=== PATIENT | male | born 1970 ===

== ENCOUNTER 2017-01-19 07:34 | Day surgery (SDC) | payer BC ==
[2017-01-19 07:58] VITALS: BMI 27.3
[2017-01-19] MEDS ORDERED: Propofol 10 mg/ml Inj (20 ML) ONE ×2 (09:16→09:34)
[2017-01-19] MEDS ORDERED: Simethicone 40 mg/0.6 ml Liquid (30 ml) ONE (09:36)
[2017-01-19 11:03] VITALS: TEMP 97
[2017-01-19 13:37] VITALS: BP 110/62; PULSE 75; RESP 16; O2SAT 97
== END 2017-01-19 11:05 | disposition home or self-care (01) ==
LOC: C.ENDO 07:34
PROVIDERS: ATTEND Internal Medicine Gastroenterology
DX: K29.50 Unspecified chronic gastritis without bleeding (principal); K62.3 Rectal prolapse; K64.8 Other hemorrhoids; K57.90 Diverticulosis of intestine, part unspecified, without perforation or abscess without bleeding; D12.2 Benign neoplasm of ascending colon; D12.5 Benign neoplasm of sigmoid colon; B96.81 Helicobacter pylori [H. pylori] as the cause of diseases classified elsewhere
CPT/HCPCS: 43239; 45388; 88305; 88342; J2001; J2704; J3010

== ENCOUNTER 2017-05-18 08:56 | Day surgery (SDC) | payer BC ==
[2017-05-18 10:10] VITALS: TEMP 97.8
[2017-05-18] MEDS ORDERED: Lactated Ringer's 1,000 ML IV ONE (11:26)
--- NOTE | 2017-05-18 11:28 | CP.SDSHP ---
Same Day Surgery H & P - History Proposed Procedure: sigmoidoscopy Pre-Op Diagnosis: colitis - Allergies Allergies: Allergies No Known Allergies Allergy (Verified 05/18/17 09:49) - Physical Exam General Appearance: NAD Vital Signs: Vital Signs 05/18/17 09:35 Temperature 97.8 F Pulse Rate 96 H Respiratory 16 Rate Blood Pressure 117/76 O2 Sat by Pulse 100 Oximetry Mental Status: Alert & Oriented x3 Neuro: WNL Heart: WNL Lungs: WNL GI: WNL - {Optional Preform as Required} Abdomen: WNL - Impression Pt. Evaluated Today:Candidate for Anesthesia & Procedure: Yes - Date & Time Date: 05/18/17 Time: 11:28 Short Stay Discharge - Short Stay Discharge Admitting Diagnosis/Reason for Visit: NONINFECTIVE GASTROENTERITIS AND COLITIS, UNSPECIF Disposition: HOME/ ROUTINE
[2017-05-18] MEDS ORDERED: Propofol 10 mg/ml Inj (20 ML) ONE ×2 (11:29)
[2017-05-18] MEDS ORDERED: Midazolam 2 MG/2 ML VIAL ONE (11:29)
[2017-05-18 12:35] VITALS: O2SAT 99
[2017-05-18 13:26] VITALS: BP 101/55; PULSE 84; RESP 20
== END 2017-05-18 13:20 | disposition home or self-care (01) ==
LOC: C.ENDO 08:56
PROVIDERS: ATTEND Internal Medicine Gastroenterology
DX: K52.9 Noninfective gastroenteritis and colitis, unspecified (principal); R93.3 Abnormal findings on diagnostic imaging of other parts of digestive tract; K64.1 Second degree hemorrhoids
CPT/HCPCS: 45380; 88305; J2250; J2704; J7120